=== PATIENT | male | born 2000 | race Hispanic/Latino ===

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

== ENCOUNTER 2022-07-05 23:49 | Emergency (ER) | payer MEDICAID ==
[~2022-07-05] VITALS: Ht 182.9 cm; Wt 121.6 kg
[2022-07-06] MEDS ORDERED: LOPERAMIDE HCL 2 MG CAP PO ONE ×2 (00:12→00:30)
[2022-07-06 01:20] LABS: BASOPHILS % (AUTO) 0.4 % (0.0-5.0); EOSINOPHILS % (AUTO) 3.1 % (0.0-8.0); HEMATOCRIT 44.7 % (42-54); LYMPHOCYTES % (AUTO) 39.6 % (21.0-51.0); MEAN CORPUSCULAR HGB CONC 33.6 g/dL (32.0-36.0); MEAN CORPUSCULAR VOLUME 83.4 fL (80-100); MONOCYTES % (AUTO) 8.8 % (3.0-13.0); NEUTROPHILS % (AUTO) 47.9 % (40.0-77.0); PLATELET COUNT (AUTO) 269 K/uL (130-400); RED BLOOD CELL COUNT(AUTO) 5.36 MIL/uL (4.50-6.20); WHITE BLOOD COUNT (AUTO) 10.4 K/uL (4.8-10.8)
[2022-07-06 01:28] LABS: POTASSIUM 3.5 mmol/L (3.5-5.1)
[2022-07-06 01:33] LABS: ALBUMIN 3.8 g/dL (3.5-5.0); TOTAL PROTEIN, SERUM 7.3 g/dL (6.0-8.3)
[2022-07-06] MEDS ORDERED: LOPE2CAP PO (01:36)
[2022-07-06] MEDS ORDERED: LEVO750T68 PO (01:36)
[2022-07-06 01:43] VITALS: BP 121/65
[2022-07-06] MEDS ORDERED: LEVOFLOXACIN 750 MG TABLET PO SCH (02:00)
== END 2022-07-06 01:47 | disposition home or self-care (01) ==
LOC: EDH 23:49
DX: A09 Infectious gastroenteritis and colitis, unspecified (principal)
CPT/HCPCS: 36415; 80053; 85025